=== PATIENT | female | born 1985 | race Caucasian/White ===

== ENCOUNTER 2016-10-04 20:53 | Emergency (ER) ==
[2016-10-04 20:57] VITALS: BP 107/61; TEMP 96.9; BMI 24.5
[2016-10-04] MEDS ORDERED: TORADOL IM STA (21:12)
--- NOTE | 2016-10-04 21:15 | ED.PDOC ---
General ED Provider: Dr. AMY NUÑEZ Chief Complaint: Tooth Problem Stated Complaint: right upper tooth hurting and rt jaw hurting too. also c/o brown discharged no abdominal pain, Time Seen by Physician: 21:13 Mode of Arrival: Walk-In Information Source: Patient Nursing and Triage Documentation Reviewed and Agree: Yes EENT Complaint Exam - Dental/Oral Complaint/Exam Mechanism of Injury: No known trauma Symptoms Are: Still present Timing: Constant Initial Severity: Moderate Character: Reports: Dull, Aching Aggravating: Reports: Chewing Alleviating: Reports: None Associated Signs and Symptoms: Reports: Swelling, Foul odor. Denies: Discharge , Fever, Foul taste in mouth Cardiac Risk Factors: Reports: None Dental/Oral Surgical History: Reports: None Tooth Findings: Present: Percussion tenderness Cervical Lymphadenopathy Present: No Facial Swelling Present: No Septal Hematoma: No Foreign Body Present: No Dysphagia Present: No Differential Diagnoses: Dental Caries, Fractured Tooth Review of Systems - Review Of Systems Constitutional: Reports: No symptoms Eyes: Reports: No symptoms Ears, Nose, Mouth, Throat: Reports: Mouth pain Respiratory: Reports: No symptoms Cardiac: Reports: No symptoms GI: Reports: No symptoms : Reports: No symptoms Musculoskeletal: Reports: No symptoms Skin: Reports: No symptoms Neurological: Reports: No symptoms Endocrine: Reports: No symptoms Hematologic/Lymphatic: Reports: No symptoms All Other Systems: Reviewed and Negative Past Medical History - Past Medical History Previously Healthy: Yes Endocrine: Reports: None Cardiovascular: Reports: None Respiratory: Reports: None Hematological: Reports: None Gastrointestinal: Reports: None Genitourinary: Reports: None Neuro/Psych: Reports: None Musculoskeletal: Reports: None Cancer: Reports: None Last Menstrual Period: unk - Surgical History General Surgical History: Reports: None - Family History Family History: Reports: None - Social History Smoking Status: Former smoker Physical Exam - Physical Exam Appearance: Well-appearing, No pain distress, Well-nourished Eyes: JADA, EOMI, Conjunctiva clear ENT: Ears normal, Nose normal, Oropharynx normal Respiratory: Airway patent, Breath sounds clear, Breath sounds equal, Respirations nonlabored Cardiovascular: RRR, Pulses normal, No rub, No murmur GI/: Soft, Nontender, No masses, Bowel sounds normal, No Organomegaly Musculoskeletal: Normal strength, ROM intact, No edema, No calf tenderness Skin: Warm, Dry, Normal color Neurological: Sensation intact, Motor intact, Reflexes intact, Cranial nerves intact, Alert, Oriented Psychiatric: Affect appropriate, Mood appropriate Interpretation - Radiology Interpretation Radiology Interpretation By: ED Physician Radiology Results: Negative Critical Care Note - Critical Care Note Total Time (mins): 0 Course - Course Orders, Labs, Meds: Orders Category Date Time Status URINALYSIS C & S IF INDICATED Stat LAB 10/04/16 21:12 Uncollected Ketorolac Tromethamine [Toradol] MEDS 10/04/16 21:12 Stat 30 mg IM ONCE STA TEMPOROMNDIBULAR JTS (TMJ'S) Stat RADS 10/04/16 21:12 Ordered Vital Signs: Temp Pulse Resp BP Pulse Ox 10/04/16 20:54 96.9 F L 72 18 107/61 100 Departure - Departure Time of Disposition: 21:17 Disposition: HOME SELF-CARE Discharge Problem: Toothache Instructions: Dental Caries (ED) Condition: Stable Pt referred to PMD for follow-up: Yes Additional Instructions: needs f/u with dentist Prescriptions: Metronidazole [Flagyl] 500 mg PO Q8HR #30 tablet Tramadol HCl 50 mg PO BID #14 tablet Allergies/Adverse Reactions: Allergies No Known Allergies Allergy (Unverified 10/04/16 21:00) Home Medications: Ambulatory Orders Metronidazole [Flagyl] 500 mg PO Q8HR #30 tablet 10/04/16 Tramadol HCl 50 mg PO BID #14 tablet 10/04/16 Disposition Discussed With: Patient
[2016-10-04 21:32] LABS: ADD URINE MICROSCOPIC YES; BILIRUBIN,URINE Negative (NEGATIVE); KETONES,URINE 1+ (NEGATIVE); LEUKOCYTE ESTERASE ,URINE Negative (NEGATIVE); NITRITE,URINE Negative (NEGATIVE); PH,URINE 6.5 (5-9); PROTEIN,URINE Trace (NEGATIVE); URINE, BLOOD 2+ (NEGATIVE)
[2016-10-04 21:43] LABS: BACTERIA,URINE 3+ (NOT PRESENT)
[2016-10-04] MEDS ORDERED: FLAGYL PO STA (22:02)
--- NOTE | 2016-10-04 22:16 | DI ---
EXAM: Bilateral temporal mandibular joints 10/04/2016 HISTORY: Tooth pain COMPARISON: None. FINDINGS: There is anterior positioning of the right mandibular condyle relative to the right condy lar fossa. This could be due to positioning. Please correlate with physical examination. No acute fracture identified. The temporal mandibular joints are not visualized on the majority of the provided images due to tech nique and overlapping osseous structures. Portions of the examination nondiagnostic. IMPRESSION: Anterior positioning of the right mandibular condyle relative to the condylar fossa. T his could be due to positioning. Please correlate with physical examination. Portions of the examination nondiagnostic. Extremely limited osseous detail at the level of the tem poral mandibular joints. If clinical concern persists then CT and/or MRI could be performed.
== END 2016-10-04 22:40 | disposition home or self-care (01) ==
LOC: ED 20:53
DX: K08.89 Other specified disorders of teeth and supporting structures (principal); K02.7 Dental root caries
CPT/HCPCS: 81001; 87086; 87186; 96372; 99283

== ENCOUNTER 2016-11-04 03:42 | Outpatient (CLI) | END 2016-11-04 03:43 | LOC: AMBL 03:42 | PROVIDERS: ATTEND Internal Medicine Geriatric Medicine | DX: R41.82 Altered mental status, unspecified (principal) ==

== ENCOUNTER 2016-11-13 00:32 | Emergency (ER) ==
[2016-11-13 00:41] VITALS: BP 107/70; TEMP 96.7; BMI 23.3
--- NOTE | 2016-11-13 00:55 | ED.PDOC ---
General ED Provider: Dr. AMY NUÑEZ Chief Complaint: Dizziness Stated Complaint: Patient fell and hit the head couple days ago, ever since she is feeling dizzi, hurting on nose. Time Seen by Physician: 00:53 Mode of Arrival: Walk-In Information Source: Patient Nursing and Triage Documentation Reviewed and Agree: Yes Neurological Complaint Exam - Dizziness Complaint/Exam Onset: Gradual Symptoms Are: Still present Timing: Constant Episodes Lasting: Days Initial Severity: Moderate Current Severity: Moderate Character: Reports: Room spinning, Lightheaded Aggravating: Reports: Position change Alleviating: Reports: None Associated Signs and Symptoms: Reports: Visual changes. Denies: Nausea, Vomiting, Diaphoresis, Tinnitus, Chest pain, Short of air, Palpitations, Unsteady gait, GI blood loss, Decreased oral intake, Change in medication, Change in diet, OTC meds, Loss of balance Cardiac Risk Factors: Reports: None CVA Risk Factors: Reports: None Related Surgical History: Reports: None JVD Present: No Carotid Bruit Present: No Rectal Heme Positive: No Nystagmus Present: No Gag Reflex Present: No Meningeal Signs Positive: No Focal Weakness: Present: None Focal Sensory Loss: Present: None Gait: Normal [id number]: Normal Findings Romberg Test Positive: No Babinski Sign: Negative Right, Negative Left Differential Diagnoses: Metabolic abnormalities, Other (head injury) Review of Systems - Review Of Systems Constitutional: Reports: Malaise, Weakness Eyes: Reports: No symptoms Ears, Nose, Mouth, Throat: Reports: No symptoms Respiratory: Reports: No symptoms Cardiac: Reports: No symptoms GI: Reports: No symptoms : Reports: No symptoms Musculoskeletal: Reports: No symptoms Skin: Reports: No symptoms Neurological: Reports: Headache, Weakness Endocrine: Reports: No symptoms Hematologic/Lymphatic: Reports: No symptoms All Other Systems: Reviewed and Negative Past Medical History - Past Medical History Previously Healthy: Yes Endocrine: Reports: None Cardiovascular: Reports: None Respiratory: Reports: None Hematological: Reports: None Gastrointestinal: Reports: None Genitourinary: Reports: None Neuro/Psych: Reports: None Musculoskeletal: Reports: None Cancer: Reports: None Last Menstrual Period: 1 day - Surgical History General Surgical History: Reports: - Family History Family History: Reports: None - Social History Smoking Status: Current every day smoker, Light tobacco smoker Smoking Cessation Counseling Time: > 3 min - 10 min Hx Substance Use: No Alcohol Screening: None - Immunizations Tetanus Shot up to Date: Yes Physical Exam - Physical Exam Appearance: Well-appearing, Thin Eyes: EOMI, Conjunctiva clear ENT: Ears normal, Nose normal, Oropharynx normal Respiratory: Airway patent, Breath sounds clear, Breath sounds equal, Respirations nonlabored Cardiovascular: RRR, Pulses normal, No rub, No murmur GI/: Soft, Nontender, No masses, Bowel sounds normal, No Organomegaly Musculoskeletal: Normal strength, ROM intact, No edema, No calf tenderness Skin: Warm, Dry, Normal color Neurological: Sensation intact, Motor intact, Reflexes intact, Cranial nerves intact, Alert, Oriented Psychiatric: Affect appropriate, Mood appropriate Interpretation - Radiology Interpretation Radiology Interpretation By: Radiologist Radiology Results: Negative Exam Interpreted: CT Scan Critical Care Note - Critical Care Note Total Time (mins): 0 Course - Course Hematology/Chemistry: 11/13/16 01:00 11/13/16 01:00 Orders, Labs, Meds: Lab Review 11/13/16 11/13/16 01:00 02:05 WBC 10.55 H RBC 2.87 L Hgb 7.4 L Hct 23.1 L MCV 80.5 L MCH 25.8 L MCHC 32.0 RDW Coeff of Denis 15.9 H Plt Count 355 Immature Gran % (Auto) 0.8 Neut % (Auto) 74.8 Lymph % (Auto) 16.7 [place]bon % (Auto) 6.1 Eos % (Auto) 0.8 Baso % (Auto) 0.8 Immature Gran # (Auto) 0.1 Neut # 7.9 H Lymph # 1.8 Bourbon # 0.6 Eos # 0.1 Baso # 0.1 Sodium 138 Potassium 4.2 Chloride 106 Carbon Dioxide 24 Anion Gap 12.2 BUN 9 Creatinine 0.78 Estimated GFR (MDRD) 87.00 BUN/Creatinine Ratio 11.53 Glucose 97 Calcium 8.8 Total Bilirubin 0.25 AST 14 L ALT 9 L Alkaline Phosphatase 60 Total Protein 6.2 L Albumin 3.7 Globulin 2.5 Albumin/Globulin Ratio 1.48 Urine Color Yellow Urine Clarity Slightly Urine pH 5.0 Ur Specific Custer >=1.030 Urine Protein Trace Urine Glucose (UA) Negative Urine Ketones Trace Urine Blood 2+ Urine Nitrite Positive Urine Bilirubin Negative Urine Urobilinogen 0.2 Ur Leukocyte Esterase Negative Urine Microscopic RBC 0-2 Urine Microscopic WBC 2-5 Ur Squamous Epith Cells 5-10 Urine Bacteria 3+ Urine Test Negative Orders Category Date Time Status CBC W/ AUTO DIFF Stat LAB 11/13/16 01:00 Completed COMPREHENSIVE METABOLIC PANEL Stat LAB 11/13/16 01:00 Completed URINALYSIS C & S IF INDICATED Stat LAB 11/13/16 02:05 Completed URINE CULTURE Stat LAB 11/13/16 02:19 Received URINE DRUG SCREEN (RAPID FOR ED) [DRUG SCREEN, URINE, LAB 11/13/16 03:13 Ordered RAPID] Stat URINE Stat LAB 11/13/16 02:[address] HEAD W/O CONTRAST Stat RADS 11/13/16 00:[address] MAXILLOFACIAL W/O CONTRAST Stat RADS 11/13/16 00:52 Completed Vital Signs: Temp Pulse Resp BP Pulse Ox 11/13/16 00:33 96.7 F L 74 20 107/70 99 Departure - Departure Time of Disposition: 03:17 Disposition: HOME SELF-CARE Discharge Problem: Anemia Qualifiers: Anemia type: iron deficiency 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 Allergies/Adverse Reactions: Allergies No Known Allergies Allergy (Unverified 10/04/16 21:00) Home Medications: Ambulatory Orders Metronidazole [Flagyl] 500 mg PO Q8HR #30 tablet 10/04/16 Tramadol HCl 50 mg PO BID #14 tablet 10/04/16 Disposition Discussed With: Patient
[2016-11-13 01:30] LABS: BASOPHILS # (AUTO) 0.1 K/uL (0-0.2); BASOPHILS % (AUTO) 0.8 % (0.0-3.0); EOSINOPHILS # (AUTO) 0.1 K/ul (0.0-0.7); EOSINOPHILS % (AUTO) 0.8 % (0.0-7.0); HEMATOCRIT 23.1 % (37.0-47.0); HEMOGLOBIN 7.4 g/dl (12.0-16.0); IMMATURE GRANULOCYTE % (AUTO) 0.8 % (0.0-5.0); LYMPHOCYTES # (AUTO) 1.8 K/uL (0.60-3.4); LYMPHOCYTES % (AUTO) 16.7 (10.0-50.0); MEAN CORPUSCULAR HEMOGLOBIN 25.8 pg (27.0-31.0); MEAN CORPUSCULAR VOLUME 80.5 fl (81.0-99.0); MONOCYTES # (AUTO) 0.6 K/uL (0.4-2.0); MONOCYTES % (AUTO) 6.1 (0-10); NEUTROPHILS # (AUTO) 7.9 K/ul (2.0-6.9); NEUTROPHILS % (AUTO) 74.8; PLATELET COUNT 355 10^3/uL (140-440); RED BLOOD COUNT 2.87 10^6/ul (4.20-5.40); WHITE BLOOD COUNT 10.55 K/ul (4.6-10.2)
[2016-11-13 02:12] LABS: BILIRUBIN,URINE Negative (NEGATIVE); KETONES,URINE Trace (NEGATIVE); LEUKOCYTE ESTERASE ,URINE Negative (NEGATIVE); NITRITE,URINE Positive (NEGATIVE); PROTEIN,URINE Trace (NEGATIVE); URINE, BLOOD 2+ (NEGATIVE)
[2016-11-13 02:13] LABS: URINE PREGNANCY INTERNAL QC INTERNAL QC VALID
[2016-11-13 02:18] LABS: ALBUMIN 3.7 g/dL (3.4-5.0); ALBUMIN/GLOBULIN RATIO 1.48; ANION GAP 12.2; BILIRUBIN,TOTAL 0.25 mg/dL (0.00-1.20); BUN/CREATININE RATIO 11.53; CALCIUM 8.8 mg/dL (8.2-10.2); CREATININE 0.78 mg/dL (0.60-1.30); POTASSIUM 4.2 mmol/L (3.5-5.10); TOTAL PROTEIN 6.2 g/dL (6.4-8.2)
[2016-11-13 02:19] LABS: ADD URINE MICROSCOPIC YES; BACTERIA,URINE 3+ (NOT PRESENT)
--- NOTE | 2016-11-13 02:39 | CT ---
EXAM: CT scan brain without contrast HISTORY: Fall COMPARISON: None. FINDINGS: Contiguous axial images were obtained from the skull base to the convexities without cont rast utilizing 5-mm collimation. Coronal reconstructions were imaged reviewed. The ventricles and CSF spaces are within normal limits. No acute intracranial findings. The visualized paranasal sinu ses and mastoid air cells are clear. The calvarium is intact. IMPRESSION: No acute intracranial findings.
--- NOTE | 2016-11-13 02:41 | CT ---
Exam: CT facial bones without contrast History: Trauma and pain Technique: [address] facial bones with multiplanar reformations FINDINGS: Paranasal sinuses are clear. The orbits and zygoma are intact. The nasal bones are inta ct. Maxilla and mandible are intact. No significant soft tissue abnormality. Impression: No facial fracture.
[2016-11-13 03:26] LABS: COCAIN SCREEN,URINE NEGATIVE (NEGATIVE)
== END 2016-11-13 04:03 | disposition home or self-care (01) ==
LOC: ED 00:32
DX: D50.0 Iron deficiency anemia secondary to blood loss (chronic) (principal); N93.8 Other specified abnormal uterine and vaginal bleeding; S09.90XA Unspecified injury of head, initial encounter; R42 Dizziness and giddiness; R51 Headache; R53.1 Weakness; F17.210 Nicotine dependence, cigarettes, uncomplicated; W19.XXXA Unspecified fall, initial encounter
CPT/HCPCS: 36415; 80053; 80306; 81001; 81025; 85025; 87086; 87186; 99283